=== PATIENT | female | born 1960 | race Caucasian/White ===

== ENCOUNTER 2020-06-24 02:54 | Emergency (ER) | payer OTHER ==
[2020-06-24 03:29] LABS: Clarity Cloudy (Clear); Leukocyte Moderate (Negative); Nitrite Positive (Negative); Protein, Urine (Dipstick) 30 mg/dL (Neg-Trace); pH, Urine 5.5 (5.0-9.0)
[2020-06-24 03:30] LABS: Bilirubin Negative (Negative); Blood, Urine Large (Negative); Glucose, Urine (Dipstick) Negative (Negative); Ketone, Urine Negative (Negative); Urobilinogen 0.2 mg/dL (Less than 2)
[2020-06-24 03:33] LABS: Bacteria/HPF 3+ HPF (None Seen); Squamous Epithelial 0-3 HPF (0-3); WBC/HPF Greater than 50 HPF (0-3)
[2020-06-24 03:34] LABS: Mucous/LPF 1+ LPF (<2+)
[2020-06-24] MEDS ORDERED: Ciprofloxacin 500 MG TAB ONE (03:42)
== END 2020-06-24 03:48 | disposition home or self-care (01) ==
LOC: MADERS 02:54
DX: N39.0 Urinary tract infection, site not specified (principal); G47.00 Insomnia, unspecified; Z79.899 Other long term (current) drug therapy
CPT/HCPCS: 81001; 87077; 87086; 87186; 99283

== ENCOUNTER 2020-06-30 12:34 | Outpatient (CLI) | payer OTHER | END 2020-06-30 12:35 | disposition home or self-care (01) | LOC: MADLAB 12:34 | PROVIDERS: ATTEND Family Medicine | DX: N39.0 Urinary tract infection, site not specified (principal) | CPT/HCPCS: 87086 ==